=== PATIENT | female | born 1990 | race Caucasian/White ===

== ENCOUNTER 2016-10-27 13:38 | Emergency (ER) | payer MEDICAID ==
[~2016-10-27 13:38] MED LIST: IBUPROFEN800 M1 PO; PERCOCET 5-3251 EACH PO; PRENA1 CHEW TA1.4 M1 PO
[2016-10-27] MEDS ORDERED: ANTIDEPRESSANT (15:58)
== END 2016-10-27 16:16 ==
LOC: EDMED 13:38
PROC: 0HQGXZZ Repair Left Hand Skin, External Approach (ICD-10-PCS; principal; 2016-10-27)
DX: S61.012A Laceration without foreign body of left thumb without damage to nail, initial encounter (principal); F17.210 Nicotine dependence, cigarettes, uncomplicated; W26.0XXA Contact with knife, initial encounter; Y92.019 Unspecified place in single-family (private) house as the place of occurrence of the external cause